=== PATIENT | female | born 1965 | race Caucasian/White ===

== ENCOUNTER 2017-12-29 08:39 | Day surgery (SDC) | payer OTHER ==
[2017-12-25 13:41] VITALS: BMI 27.3
[~2017-12-29 08:39] MED LIST: LACTATED RINGERS 1,000 ML IV SCH; LIDOCAINE 1% 20 ML VIAL (10MG/ML) FOR IV START INTRADERMA PRN
[2017-12-29 09:36] VITALS: RESP 16; TEMP 98.6
[2017-12-29] MEDS ORDERED: PROPOFOL 10 MG/ML 20 ML VIAL IV ONE (09:46)
--- NOTE | 2017-12-29 10:08 | P.PCN ---
Date of Procedure: 12/29/17 Procedure(s) Performed: Procedure: Total colonoscopy. Preoperative diagnosis: Screening for neoplasia. Postoperative diagnosis: Exam within normal limits. Preparation: HalfLytely prep. Sedation: Was provided by anesthesia. Brief clinical history: The patient is a 52-year-old female who is scheduled for this evaluation for screening for neoplasia age being her risk factor. There is no family history of colon cancer. Her father has Crohn's disease. She has no abdominal complaints, bleeding or anemia. This would be her first colonoscopy. Procedure: With the patient on her left lateral decubitus position and after informed consent and adequate sedation the perianal area was inspected and it did not show any fissures or fistulas. There were no masses felt on digital rectal examination. The Olympus CFQ 160L video colonoscope was then inserted in the rectum in the usual fashion and advanced to the cecum. The mucosa appeared healthy. No polyps or tumors were seen or any obvious diverticular disease or other pathology I retroflexed the endoscope in the rectum before the endoscope was withdrawn. The patient tolerated the procedure well. Plan: The patient was reassured. She will follow-up with you as planned and I recommended repeat exam in 10 years.
[2017-12-29 10:34] VITALS: BP 127/83; PULSE 73
== END 2017-12-29 10:52 | disposition home or self-care (01) ==
LOC: ORWHC2ENDO 08:39
DX: Z12.11 Encounter for screening for malignant neoplasm of colon (principal); E78.5 Hyperlipidemia, unspecified; Z87.891 Personal history of nicotine dependence; Z79.1 Long term (current) use of non-steroidal anti-inflammatories (NSAID); Z79.899 Other long term (current) drug therapy
CPT/HCPCS: J2704; G0121; 45378

== ENCOUNTER → 2018-01-05 | Outpatient (CLI) | payer OTHER ==
--- NOTE | 2018-01-05 11:44 | ECHOS ---
STRESS ECHOCARDIOGRAM DATE OF SERVICE: 01/05/2018 INDICATIONS: Chest pain. MEDICATIONS: BASELINE HEART RATE: 86 BASELINE BLOOD PRESSURE: 158/84 MAXIMUM HEART RATE: 156 MAXIMUM BLOOD PRESSURE: 206/78 85% MPHR: 144 100% MPHR: 169 METS: 8 MAXIMUM STAGE REACHED: III TOTAL EXERCISE TIME: 7 minutes CLINICAL INFORMATION: Baseline EKG shows sinus rhythm, normal axis, normal intervals. Patient exercised on Ruel protocol for a total of 7 minutes achieving 8 METs, 92% of predicted maximal heart rate without chest pain. At peak exercise, she had a [address]-segment depression in the inferolateral leads that persisted almost 5 to 6 minutes into recovery. Baseline echo shows normal left ventricular size, wall motion and systolic function. Postexercise, there is normal hyperdynamic response of all segments of myocardium noted. CONCLUSIONS: 1. Above-average exercise tolerance. 2. Abnormal stress test by EKG criteria. 3. Negative stress echo. OLEGL / IJN: [id number] /
== END | disposition home or self-care (01) ==
LOC: RADNMMAIN 09:58
PROVIDERS: ATTEND Family Medicine
DX: R94.39 Abnormal result of other cardiovascular function study (principal)
CPT/HCPCS: 93351

== ENCOUNTER → 2018-01-08 | Outpatient (CLI) | payer OTHER ==
--- NOTE | 2018-01-14 10:07 | MM ---
Reason for exam: screening (asymptomatic). Last mammogram was performed 2 years and 5 months ago. History: Patient is postmenopausal. Family history of breast cancer in paternal grandmother at age 30. Physical Findings: A clinical breast exam by your physician is recommended on an annual basis and results should be correlated with mammographic findings. MG 3D Screening Mammo W/Cad Bilateral CC and MLO view(s) were taken. Prior study comparison: August 21, 2015, bilateral MG 3d screening mammo w/cad. July 28, 2012, bilateral digital screening mammo w/CAD. The breast tissue is heterogeneously dense. This may lower the sensitivity of mammography. Finding: There is a typically benign equal density (isodense), circumscribed lobulated mass located 10 cm from the nipple in the upper outer quadrant, posterior position of the left breast consistent with lymph node. ASSESSMENT: Probably benign, BI-RAD 3 RECOMMENDATION: Follow-up diagnostic mammogram of the left breast in 6 months.
== END | disposition home or self-care (01) ==
LOC: RADMAMWWP 15:46
PROVIDERS: ATTEND Family Medicine
DX: Z12.31 Encounter for screening mammogram for malignant neoplasm of breast (principal)
CPT/HCPCS: 77063; 77067

== ENCOUNTER → 2018-01-08 | Outpatient (CLI) | payer OTHER ==
[2018-01-08 17:54] LABS: Anion Gap 12 mmol/L; Blood Urea Nitrogen 12 mg/dL (7-17); Carbon Dioxide 24 mmol/L (22-30); Chloride 106 mmol/L (98-107); Potassium 3.9 mmol/L (3.5-5.1); Sodium 142 mmol/L (137-145)
[2018-01-08 18:47] LABS: HCT 42.1 % (34.0-46.0); HGB 13.6 gm/dL (11.4-16.0); MCHC 32.4 g/dL (31.0-37.0); MCV 89.6 fL (80.0-100.0); Mean Platelet Volume 6.5; Platelet Count 395 k/uL (150-450); RDW 13.4 % (11.5-15.5); WBC 10.4 k/uL (3.8-10.6)
== END | disposition home or self-care (01) ==
LOC: LABPAT 16:27
PROVIDERS: ATTEND Internal Medicine Cardiovascular Disease
DX: Z01.812 Encounter for preprocedural laboratory examination (principal); R94.39 Abnormal result of other cardiovascular function study
CPT/HCPCS: 80051; 82565; 84520; 85027

== ENCOUNTER 2018-01-15 07:33 | Day surgery (SDC) | payer OTHER ==
[2018-01-12 12:18] VITALS: BMI 27.3
[~2018-01-15 07:33] MED LIST changes: +ALPRAZolam 0.25 MG TAB PO PRN; +ALPRAZolam 0.5 MG TAB PO PRN; +ASPIRIN 325 MG TAB PO STA; +ATORVASTATIN 80 MG TAB PO STA; -LACTATED RINGERS 1,000 ML IV SCH; -LIDOCAINE 1% 20 ML VIAL (10MG/ML) FOR IV START INTRADERMA PRN; +NITROGLYCERIN SL TABS 0.4 MG TAB SUBLINGUAL PRN; +SODIUM CHLORIDE 0.9% 1,000 ML in EMPTY BAG 1 BAG IV ONE
[2018-01-15] MEDS ORDERED: MIDAZOLAM 2 MG/2 ML VIAL ONE (08:02)
[2018-01-15] MEDS ORDERED: LIDOCAINE 1% INJ 10MG/ML (20 ML MDV) ONE (08:02)
[2018-01-15 08:07] VITALS: RESP 16; TEMP 98.4
[2018-01-15] MEDS ORDERED: MIDAZOLAM 2 MG/2 ML VIAL IVP ONE ×2 (08:39→08:43)
[2018-01-15] MEDS ORDERED: LIDOCAINE 1% INJ 10MG/ML (20 ML MDV) SQ ONE (08:41)
[2018-01-15] MEDS ORDERED: IOPAMIDOL-370 125ML BTL INJ ONE (08:58)
[2018-01-15] MEDS ORDERED: RX INFO: IV CONTRAST WAS GIVEN 1 EACH MISC MISCELLANE PRN (09:06)
[2018-01-15] MEDS ORDERED: fentaNYL (PF) 50 MCG/ML 2 ML AMP ONE (09:07)
[2018-01-15] MEDS ORDERED: fentaNYL (PF) 50 MCG/ML 2 ML AMP IVP ONE (09:10)
[2018-01-15] MEDS ORDERED: SODIUM CHLORIDE 0.9% 1,000 ML IV SCH (09:15)
--- NOTE | 2018-01-15 09:37 | CC ---
CARDIAC CATHETERIZATION REPORT INDICATION: Precordial chest pain with abnormal EKG part of the stress test in a patient with multiple coronary risk factors including smoking, dyslipidemia, and strong family history of premature coronary artery disease. The patient was explained of risks, benefits and alternatives for cardiac catheterization including the risk of stroke, vascular injury, infection, and rarely something more serious. She understood and accepted. PROCEDURE NOTE: After obtaining informed consent, left heart catheterization and coronary angiogram were performed via the right femoral artery using standard Yasemin catheters. The patient tolerated the procedure well without any obvious immediate complications. A femoral angiogram was performed and Angio-Seal was deployed for hemostasis. FINDINGS: HEMODYNAMICS: Left ventricular end-diastolic pressure is 8 to 12 mm. There is no significant gradient across aortic valve. LEFT VENTRICULOGRAM: Left ventriculogram is not performed. ANGIOGRAPHIC DATA: 1. Left main coronary artery: Left main coronary artery is a normal-sized vessel and is free of stenosis. Divides into left anterior descending coronary artery and circumflex coronary artery. 2. LAD and its branches, circumflex coronary artery and its branches are free of significant stenosis. 3. Right coronary artery: Right coronary artery is a large dominant vessel shows a mild atherosclerotic plaque in its midportion, but there are no focal hemodynamically significant lesions noted. 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 PLAN: I told the patient the patient's chest discomfort is probably noncardiac in origin and she could have underlying vasospasm. I advised her to quit smoking, take an aspirin, cholesterol-lowering medications and have optimal control of blood pressure. If necessary, I will start her on nitrates. The patient received moderate conscious sedation and total sedation time is 15 minutes. MMODL / IJN: [id number] /
[2018-01-15] MEDS ORDERED: ACETAMINOPHEN TAB 325 MG TAB ONE (10:38)
[2018-01-15 14:16] VITALS: BP 128/72; PULSE 64
== END 2018-01-15 14:16 | disposition home or self-care (01) ==
LOC: CATHCVL 07:33
PROVIDERS: ATTEND Internal Medicine Cardiovascular Disease
DX: I25.10 Atherosclerotic heart disease of native coronary artery without angina pectoris (principal); F17.200 Nicotine dependence, unspecified, uncomplicated; E78.2 Mixed hyperlipidemia; Z79.899 Other long term (current) drug therapy; Z82.49 Family history of ischemic heart disease and other diseases of the circulatory system
CPT/HCPCS: 93458; C1760; C1894; C1769; J2250; J2001; J3010; Q9967

== ENCOUNTER → 2018-02-05 | Outpatient (CLI) | payer OTHER ==
[2018-02-05 15:15] VITALS: BP 156/67; PULSE 79; RESP 14; TEMP 98.2; BMI 27.7
--- NOTE | 2018-02-05 15:19 | P.GSHP ---
History of Present Illness H&P Date: 02/05/18 The patient is a 52-year-old white female who on routine mammogram was noted to have a circumscribed lobulated mass located 10 cm from the nipple in the upper inner quadrant posterior portion of the left breast. This was felt to be consistent with a lymph node and probably benign BIRADS 3. Follow-up diagnostic mammogram of the left breast in 6 months time was recommended. The patient herself does not feel any masses in her breast she has no nipple discharge or skin changes. Patient with very little intake of caffiene, chocolate: every day, does not smoke, lives with a smoker. Family history: Maternal grandmother: Colon cancer 2. Paternal grandmother of breast cancer at 30 Hormonal history: Menstrual period began at 13 Pregnancies 5, 1 miscarriage 4 children first at 22 patient did not breast-feed control pills: 15 years Hormones: Negative Menopause: 49 Past surgical history: 1. appendix 2. heart cath 3. colonoscopy Past medical history: 1. HTN Social History: smoke: 1 PPD/stopped 6 years ago Alcohol: Negative Drugs: Negative - Constitutional Constitutional: Denies chills, Denies fever - EENT Eyes: denies blurred vision Ears: deny: decreased hearing, tinnitus Ears, nose, mouth and throat: Denies headache, Denies sore throat - Breasts Breasts: bilateral: as per HPI - Cardiovascular Cardiovascular: Reports high blood pressure - Respiratory Comment: former smoker Respiratory: Denies cough, Denies 7 - Gastrointestinal Gastrointestinal: Denies abdominal pain, Denies diarrhea, Denies nausea, Denies vomiting - Genitourinary (Female) Genitourinary: Denies dysuria, Denies hematuria - Menstruation Menstruation: Reports postmenopausal - Musculoskeletal Musculoskeletal: Denies myalgias - Integumentary Integumentary: Denies pruritus, Denies rash - Neurological Neurological: Denies numbness, Denies weakness - Psychiatric Psychiatric: Reports anxiety, Denies depression - Endocrine Endocrine: Denies fatigue, Denies weight change - Hematologic/Lymphatic Comment: baby aspirin - Allergic/Immunologic Comment: none Past Medical History Past Medical History: Hyperlipidemia, Hypertension Additional Past Medical History / Comment(s): States bp and glucose slightly elevated at last Drs. visit. Gets twitching/spasms in left calf. History of Any Multi-Drug Resistant Organisms: None Reported Past Surgical History: Appendectomy Past Anesthesia/Blood Transfusion Reactions: No Reported Reaction Past Psychological History: Anxiety Smoking Status: Former smoker Past Alcohol Use History: Rare Additional Past Alcohol Use History / Comment(s): QUIT SMOKING 5-6 YEARS AGO., SMOKED 1 PPD., SMOKED 15 YEARS Past Drug Use History: None Reported - Past Family History Father Additional Family Medical History / Comment(s): CROHNS Medications and Allergies Home Medications Medication Instructions Recorded Confirmed Type Acetaminophen Tab [Tylenol Tab] 650 mg PO Q6H PRN 12/25/17 01/15/18 History Atorvastatin [Lipitor] 1 tab PO HS 12/25/17 01/15/18 History Biotin 1 tab PO DAILY 12/25/17 01/12/18 History Cinnamon Bark [Cinnamon] 1 tab PO DAILY 12/25/17 01/12/18 History Ibuprofen [Motrin Ib] 400 mg PO HS PRN 12/25/17 01/12/18 History [place]ball-3 Fatty Acids/Fish Oil [Fish 1 each PO DAILY 12/25/17 01/15/18 History Oil 1,000 mg Softgel] PARoxetine HCL [Paxil] 30 mg PO DAILY 12/25/17 01/15/18 History Zolpidem [Ambien] 1 tab PO HS PRN 12/25/17 01/15/18 History Nitroglycerin Sl Tabs [Nitrostat] 0.4 mg SUBLINGUAL Q5M PRN 01/12/18 01/12/18 History Metoprolol Succinate (ER) [Toprol 25 mg PO DAILY 01/15/18 01/15/18 History Xl] Allergies Allergy/AdvReac Type Severity Reaction Status Date / Time No Known Allergies Allergy Verified 01/12/18 11:52 Surgical - Exam - General well developed, well nourished, no distress - Eyes normal ocular movement, no icteric - ENT no hearing loss, no congestion - Neck no masses, trachea midline - Respiratory normal respiratory effort, clear to auscultation - Cardiovascular Rhythm: regular Heart Sounds: normal: S1, S2 - Abdomen Abdomen: soft, non tender, no guarding, no rigid, no rebound - Neurologic no disoriented, no combative - Musculoskeletal normal gait, normal posture - Psychiatric oriented to time, oriented to person, oriented to place, speech is normal, memory intact Breast examination: Right breast: Multiple positional exam no dominant masses or nodules of concern Right axilla: No adenopathy of concern Left breast: Multiple positional exam or dominant masses or nodules of concern particularly attention was paid to the area 10 cm from the nipple in the upper outer quadrant and no specific lesion was identified Left axilla: No adenopathy of concern Results Mammogram results reviewed Assessment and Plan Assessment: Impression/plan: 1. Mammographic abnormality left breast 2. Fibrocystic breast changes 3. Hypertension Plan: 1. Repeat left breast mammogram in 6 months time 2. Medical management of medical problems We have had a discussion regarding fibrocystic changes and she understands that caffeinated beverages and/or chocolate may make further cystic changes worse. Cc: Dr. Cornel Witt
== END | disposition home or self-care (01) ==
LOC: WWCWWP 14:23
PROVIDERS: ATTEND Surgery
DX: Z53.9 Procedure and treatment not carried out, unspecified reason (principal)

== ENCOUNTER 2018-02-26 19:43 | Emergency (ER) | payer OTHER ==
[2018-02-26] MEDS ORDERED: SODIUM CHLORIDE 0.9% 1,000 ML IV STA (20:32)
[2018-02-26] MEDS ORDERED: FAMOTIDINE 20 MG/2 ML VIAL IV STA (20:33)
--- NOTE | 2018-02-26 20:39 | ED ---
Abdominal Pain HPI - General Chief Complaint: Abdominal Pain Stated Complaint: upper abdominal & back pain/vomiting Time Seen by Provider: 02/26/18 20:15 Source: patient, family Mode of arrival: ambulatory Limitations: no limitations - History of Present Illness Initial Comments: 52-year-old female patient presented to the emergency department today for evaluation of midepigastric discomfort and right upper quadrant discomfort. Patient is describing the pain as an "intense hunger pain that hurts". Patient states his been going on for the last couple of days but today after eating seemed to worsen. Patient states she has been nauseated but has not vomited. She denies any diarrhea but states she has been mildly constipated. She denies any fevers or chills with this. Patient has had an appendectomy before but no other abdominal surgeries. Patient has been told she has had a hernia in the past. Patient did have a clean heart cath 2 weeks ago. Patient denies any recent rash, shortness breath, chest pain, diarrhea, constipation, back pain, numbness, tingling, dizziness, weakness, hematuria, dysuria, urinary urgency, urinary frequency, headache, visual changes, or any other complaints. - Related Data Home Medications Medication Instructions Recorded Confirmed Atorvastatin [Lipitor] 40 mg PO HS 12/25/17 02/26/18 Ibuprofen [Motrin Ib] 400 mg PO HS PRN 12/25/17 02/26/18 Zolpidem [Ambien] 5 mg PO HS PRN 12/25/17 02/26/18 Nitroglycerin Sl Tabs [Nitrostat] 0.4 mg SUBLINGUAL Q5M PRN 01/12/18 02/26/18 Metoprolol Succinate (ER) [Toprol 25 mg PO DAILY 01/15/18 02/26/18 Xl] Hydrochlorothiazide 12.5 mg PO DAILY 02/05/18 02/26/18 PARoxetine [Paxil] 20 mg PO DAILY 02/26/18 02/26/18 Previous Rx's Medication Instructions Recorded Ranitidine HCl [Zantac] 150 mg PO HS #30 tab 02/26/18 Allergies Allergy/AdvReac Type Severity Reaction Status Date / Time No Known Allergies Allergy Verified 02/26/18 20:07 Review of Systems ROS Statement: Those systems with pertinent positive or pertinent negative responses have been documented in the HPI. ROS Other: All systems not noted in ROS Statement are negative. Past Medical History Past Medical History: Hyperlipidemia, Hypertension Additional Past Medical History / Comment(s): States bp and glucose slightly elevated at last Drs. visit. Gets twitching/spasms in left calf. History of Any Multi-Drug Resistant Organisms: None Reported Past Surgical History: Appendectomy Past Anesthesia/Blood Transfusion Reactions: No Reported Reaction Past Psychological History: Anxiety Smoking Status: Former smoker Past Alcohol Use History: Rare Past Drug Use History: None Reported - Past Family History Father Additional Family Medical History / Comment(s): CROHNS General Exam Limitations: no limitations General appearance: alert, in no apparent distress, other (This is a well- developed, well-nourished adult female patient in no acute distress. Vital signs upon presentation are temperature 98.6F, pulse 72, respirations 18, blood pressure 149/81, pulse ox 98% on room air.) Eye exam: Present: normal appearance, PERRL, EOMI. Absent: scleral icterus, conjunctival injection, periorbital swelling ENT exam: Present: normal exam, normal oropharynx, mucous membranes moist Respiratory exam: Present: normal lung sounds bilaterally. Absent: respiratory distress, wheezes, rales, rhonchi, stridor Cardiovascular Exam: Present: regular rate, normal rhythm, normal heart sounds. Absent: systolic murmur, diastolic murmur, rubs, gallop, clicks GI/Abdominal exam: Present: soft, tenderness (Midepigastric tenderness), normal bowel sounds. Absent: distended, guarding, rebound, rigid Neurological exam: Present: alert, oriented X3, CN II-XII intact Psychiatric exam: Present: normal affect, normal mood Skin exam: Present: warm, dry, intact, normal color. Absent: rash Course Vital Signs 02/26/18 02/26/18 19:48 22:20 Temperature 98.6 F 97.9 F Pulse Rate 72 60 Respiratory 18 16 Rate Blood Pressure 149/81 131/76 O2 Sat by Pulse 98 96 Oximetry Medical Decision Making - Medical Decision Making 52-year-old female patient presented to the emergency department today for evaluation of midepigastric abdominal discomfort. Physical examination did reveal some mild midepigastric tenderness. Labs reviewed and are unremarkable. Patient was given Pepcid IV here in the emergency department, this did not improve symptoms that she was then administered a GI cocktail. Did discuss findings and results with the patient. We did discuss possibility of gastritis versus peptic ulcer disease as a cause for her symptoms. She is instructed to follow-up with her primary care physician and discuss referral to GI specialist. She'll be given a prescription for Zantac. Return parameters were discussed in detail. She verbalizes understanding and agrees with this plan. - Lab Data Result diagrams: 02/26/18 20:50 02/26/18 20:50 Lab Results 02/26/18 02/26/18 02/26/18 Range/Units 20:50 20:50 20:50 WBC 10.1 (3.8-10.6) k/uL RBC 4.35 (3.80-5.40) m/uL Hgb 13.5 (11.4-16.0) gm/dL Hct 40.1 (34.0-46.0) % MCV 92.1 (80.0-100.0) fL MCH 31.0 (25.0-35.0) pg MCHC 33.6 (31.0-37.0) g/dL RDW 12.9 (11.5-15.5) % Plt Count 389 (150-450) k/uL Neutrophils % 58 % Lymphocytes % 33 % Monocytes % 5 % Eosinophils % 2 % Basophils % 1 % Neutrophils # 5.8 (1.3-7.7) k/uL Lymphocytes # 3.3 (1.0-4.8) k/uL Monocytes # 0.5 (0-1.0) k/uL Eosinophils # 0.2 (0-0.7) k/uL Basophils # 0.1 (0-0.2) k/uL Sodium 141 (137-145) mmol/L Potassium 4.1 (3.5-5.1) mmol/L Chloride 105 (98-107) mmol/L Carbon Dioxide 27 (22-30) mmol/L Anion Gap 9 mmol/L BUN 21 H (7-17) mg/dL Creatinine 0.75 (0.52-1.04) mg/dL Est GFR (CKD-EPI)AfAm >90 (>60 ml/min/1.73 sqM) Est GFR (CKD-EPI)NonAf >90 (>60 ml/min/1.73 sqM) Glucose 123 H (74-99) mg/dL Calcium 9.5 (8.4-10.2) mg/dL Total Bilirubin 0.5 (0.2-1.3) mg/dL AST 25 (14-36) U/L ALT 25 (9-52) U/L Alkaline Phosphatase 78 (38-126) U/L Total Creatine Kinase (30-135) U/L CK-MB (CK-2) (0.0-2.4) ng/mL CK-MB (CK-2) Rel Index Troponin I (0.000-0.034) ng/mL Total Protein 7.4 (6.3-8.2) g/dL Albumin 4.2 (3.5-5.0) g/dL Amylase 63 (30-110) U/L Lipase 211 (23-300) U/L Urine Color Colorless Urine Appearance Clear (Clear) Urine pH 7.0 (5.0-8.0) Ur Specific [place] 1.007 (1.001-1.035) Urine Protein Negative (Negative) Urine Glucose (UA) Negative (Negative) Urine Ketones Negative (Negative) Urine Blood Negative (Negative) Urine Nitrite Negative (Negative) Urine Bilirubin Negative (Negative) Urine Urobilinogen <2.0 (<2.0) mg/dL Ur Leukocyte Esterase Negative (Negative) 02/26/18 Range/Units 20:50 WBC (3.8-10.6) k/uL RBC (3.80-5.40) m/uL Hgb (11.4-16.0) gm/dL Hct (34.0-46.0) % MCV (80.0-100.0) fL MCH (25.0-35.0) pg MCHC (31.0-37.0) g/dL RDW (11.5-15.5) % Plt Count (150-450) k/uL Neutrophils % % Lymphocytes % % Monocytes % % Eosinophils % % Basophils % % Neutrophils # (1.3-7.7) k/uL Lymphocytes # (1.0-4.8) k/uL Monocytes # (0-1.0) k/uL Eosinophils # (0-0.7) k/uL Basophils # (0-0.2) k/uL Sodium (137-145) mmol/L Potassium (3.5-5.1) mmol/L Chloride (98-107) mmol/L Carbon Dioxide (22-30) mmol/L Anion Gap mmol/L BUN (7-17) mg/dL Creatinine (0.52-1.04) mg/dL Est GFR (CKD-EPI)AfAm (>60 ml/min/1.73 sqM) Est GFR (CKD-EPI)NonAf (>60 ml/min/1.73 sqM) Glucose (74-99) mg/dL Calcium (8.4-10.2) mg/dL Total Bilirubin (0.2-1.3) mg/dL AST (14-36) U/L ALT (9-52) U/L Alkaline Phosphatase (38-126) U/L Total Creatine Kinase 130 (30-135) U/L CK-MB (CK-2) 1.0 (0.0-2.4) ng/mL CK-MB (CK-2) Rel Index 0.8 Troponin I <0.012 (0.000-0.034) ng/mL Total Protein (6.3-8.2) g/dL Albumin (3.5-5.0) g/dL Amylase (30-110) U/L Lipase (23-300) U/L Urine Color Urine Appearance (Clear) Urine pH (5.0-8.0) Ur Specific [place] (1.001-1.035) Urine Protein (Negative) Urine Glucose (UA) (Negative) Urine Ketones (Negative) Urine Blood (Negative) Urine Nitrite (Negative) Urine Bilirubin (Negative) Urine Urobilinogen (<2.0) mg/dL Ur Leukocyte Esterase (Negative) - EKG Data -: EKG Interpreted by Md EKG Comments: EKG obtained at 2106 shows normal sinus rhythm with a ventricular rate of 68, KS interval 120, QRS duration 92, QT 410, QTC 435. No evidence of ST elevation or depression. - Radiology Data Radiology results: report reviewed, image reviewed Two-view x-ray of the abdomen is obtained. There is no sign of intestinal obstruction or pneumoperitoneum. Fecal pattern is normal. Lung bases are clear consolidation. There are no pathologic calcifications over the kidneys. Impression by Dr. Cardona shows nonacute abdomen. Disposition Clinical Impression: Epigastric pain Disposition: HOME SELF-CARE Condition: Good Instructions: Gastritis (ED), Diet for Stomach Ulcers and Gastritis (ED), Abdominal Pain (ED) Additional Instructions: Take medications as directed. Follow-up with your primary care physician for possible referral to GI specialist or surgeon. Return to the emergency department immediately for any new, worsening, or concerning symptoms. Prescriptions: Ranitidine HCl [Zantac] 150 mg PO HS #30 tab Is patient prescribed a controlled substance at d/c from ED?: No Referrals: Cornel Witt MD [Primary Care Provider] - 1-2 days Bo Malhotra MD [STAFF PHYSICIAN] - 1-2 days Jesse Brown MD [Medical Doctor] - 1-2 days Time of Disposition: 22:08
--- NOTE | 2018-02-26 21:02 | XR ---
EXAMINATION TYPE: XR KUB DATE OF EXAM: 02/26/2018 COMPARISON: NONE HISTORY: Abdominal pain TECHNIQUE: 2 views FINDINGS: There is no sign of intestinal obstruction or pneumoperitoneum. Fecal pattern is normal. Laxmi ng bases are clear of consolidation. There are no pathologic calcifications over the kidneys. IMPRESSION: Nonacute abdomen.
[2018-02-26 21:04] LABS: Appearance,Urine Clear (Clear); Bilirubin,Urine Negative (Negative); Blood,Urine Negative (Negative); Color,Urine Colorless; Glucose,Urine (UA) Negative (Negative); Ketones,Urine Negative (Negative); Leukocyte Esterase,Urine Negative (Negative); Nitrite,Urine Negative (Negative); Protein,Urine Negative (Negative); Specific Gravity,Urine 1.007 (1.001-1.035); Urobilinogen,Urine <2.0 mg/dL (<2.0)
[2018-02-26 21:16] LABS: ALT 25 U/L (9-52); AST 25 U/L (14-36); Albumin 4.2 g/dL (3.5-5.0); Alkaline Phosphatase 78 U/L (38-126); Amylase 63 U/L (30-110); Anion Gap 9 mmol/L; Blood Urea Nitrogen 21 mg/dL (7-17); Calcium 9.5 mg/dL (8.4-10.2); Carbon Dioxide 27 mmol/L (22-30); Chloride 105 mmol/L (98-107); Glucose 123 mg/dL (74-99); Lipase 211 U/L (23-300); Potassium 4.1 mmol/L (3.5-5.1); Sodium 141 mmol/L (137-145); Total Bilirubin 0.5 mg/dL (0.2-1.3); Total Protein 7.4 g/dL (6.3-8.2)
[2018-02-26 21:27] LABS: Creatine Kinase 130 U/L (30-135)
[2018-02-26 21:33] LABS: Basophils # (A) 0.1 k/uL (0-0.2); Basophils % (A) 1 %; Eosinophils # (A) 0.2 k/uL (0-0.7); Eosinophils % (A) 2 %; HCT 40.1 % (34.0-46.0); HGB 13.5 gm/dL (11.4-16.0); Lymphocytes # (A) 3.3 k/uL (1.0-4.8); Lymphocytes % (A) 33 %; MCHC 33.6 g/dL (31.0-37.0); MCV 92.1 fL (80.0-100.0); Mean Platelet Volume 6.5; Monocytes # (A) 0.5 k/uL (0-1.0); Monocytes % (A) 5 %; Neutrophils # (A) 5.8 k/uL (1.3-7.7); Neutrophils % (A) 58 %; Platelet Count 389 k/uL (150-450); RBC 4.35 m/uL (3.80-5.40); RDW 12.9 % (11.5-15.5); WBC 10.1 k/uL (3.8-10.6)
[2018-02-26 21:40] LABS: Troponin I <0.012 ng/mL (0.000-0.034)
[2018-02-26] MEDS ORDERED: MAG HYDROX/AL HYDROX/SIMETH 30 ML, HYOSCYAMINE ELIXIR 10 ML, CIMETIDINE HCL 300 MG, LID... PO STA ×4 (22:07)
[2018-02-26 22:21] VITALS: BP 131/76; PULSE 60; RESP 16; TEMP 97.9
== END 2018-02-26 22:24 | disposition home or self-care (01) ==
LOC: EC 19:43
DX: R10.13 Epigastric pain (principal); R10.11 Right upper quadrant pain; R11.0 Nausea; E78.5 Hyperlipidemia, unspecified; I10 Essential (primary) hypertension; F41.9 Anxiety disorder, unspecified; Z87.891 Personal history of nicotine dependence; Z79.899 Other long term (current) drug therapy; Z90.49 Acquired absence of other specified parts of digestive tract
CPT/HCPCS: 36415; 74018; 80053; 81003; 82150; 82550; 82553; 83690; 84484; 85025; 93005; 96361; 96374; 99284

== ENCOUNTER → 2018-04-08 | Outpatient (CLI) | payer OTHER ==
--- NOTE | 2018-04-08 14:06 | NM ---
EXAMINATION TYPE: NM hepatobiliary w CCK DATE OF EXAM: 04/08/2018 COMPARISON: CT 09/24/2012 HISTORY: Right upper quadrant pain TECHNIQUE: After the intravenous administration of 5.0 mCi Tc 99m Mebrofenin hepatobiliary scintigrap hy is performed. Immediate images post injection. FINDINGS: There is satisfactory initial accumulation of tracer by the liver. The gallbladder is visualized wit hin 24 minutes. The small bowel activity is noted within 12 minutes. At one hour CCK was administer ed, patient was injected with 1.3 mcg of Kinevac, and gallbladder ejection fraction is calculated at 91 %, in the possibly hyperdynamic range. Therefore there is no scintigraphic evidence of cystic or common bile duct obstruction to suggest acute cholecystitis or gallbladder dyskinesia. IMPRESSION: Gallbladder ejection fraction is above the upper limit of normal.
== END | disposition home or self-care (01) ==
LOC: RADNMMAIN 07:11
PROVIDERS: ATTEND Surgery
DX: R10.11 Right upper quadrant pain (principal)
CPT/HCPCS: 78227; A9537; J2805

== ENCOUNTER → 2018-04-10 | Outpatient (CLI) | payer OTHER ==
--- NOTE | 2018-04-13 10:07 | USB ---
Reason for exam: clinical finding. History: Patient is postmenopausal. Family history of breast cancer in paternal grandmother at age 30. Physical Findings: Nurse did not find any significant physical abnormalities on exam. US Breast LT Left complete breast ultrasound includes all four quadrants, the retroareolar region and axilla. Finding demonstrates a 0.8 x 0.3 x 0.6cm node at 3 o'clock. These results were verbally communicated with the patient and result sheet given to the patient on 04/10/18. ASSESSMENT: Benign, BI-RAD 2 RECOMMENDATION: Return to routine screening mammogram schedule for both breasts. Back on schedule.
== END | disposition home or self-care (01) ==
LOC: RADUSWWP 14:48
PROVIDERS: ATTEND Surgery
DX: R92.8 Other abnormal and inconclusive findings on diagnostic imaging of breast (principal)

== ENCOUNTER 2018-11-27 14:14 | Observation (INO) | payer OTHER ==
[2018-11-27] MEDS ORDERED: SODIUM CHLORIDE 0.9% 500 ML 500 ML IV STA (14:46)
[2018-11-27] MEDS ORDERED: ASPIRIN 81 MG PO STA (14:46)
[2018-11-27 14:56] LABS: Basophils # (A) 0.1 k/uL (0-0.2); Basophils % (A) 1 %; Eosinophils # (A) 0.2 k/uL (0-0.7); Eosinophils % (A) 2 %; HCT 42.3 % (34.0-46.0); HGB 14.1 gm/dL (11.4-16.0); Lymphocytes # (A) 3.2 k/uL (1.0-4.8); Lymphocytes % (A) 33 %; MCH 30.4 pg (25.0-35.0); MCHC 33.4 g/dL (31.0-37.0); MCV 91.1 fL (80.0-100.0); Mean Platelet Volume 6.3; Monocytes # (A) 0.5 k/uL (0-1.0); Monocytes % (A) 5 %; Neutrophils # (A) 5.6 k/uL (1.3-7.7); Neutrophils % (A) 57 %; Platelet Count 418 k/uL (150-450); RBC 4.65 m/uL (3.80-5.40); WBC 9.7 k/uL (3.8-10.6)
[2018-11-27 15:06] LABS: ALT 19 U/L (9-52); AST 25 U/L (14-36); African American GFR (CKD) >90 (>60 ml/min/1.73 sqM); Albumin 4.7 g/dL (3.5-5.0); Alkaline Phosphatase 89 U/L (38-126); Anion Gap 9 mmol/L; Blood Urea Nitrogen 13 mg/dL (7-17); Calcium 9.8 mg/dL (8.4-10.2); Carbon Dioxide 28 mmol/L (22-30); Chloride 105 mmol/L (98-107); Glucose 68 mg/dL (74-99); Magnesium 2.1 mg/dL (1.6-2.3); Potassium 4.1 mmol/L (3.5-5.1); Sodium 142 mmol/L (137-145); Total Bilirubin 0.5 mg/dL (0.2-1.3); Total Protein 7.8 g/dL (6.3-8.2)
[2018-11-27 15:11] LABS: INR 0.9 (<1.2); Partial Thromboplastin Time 24.1 sec (22.0-30.0); Prothrombin Time 9.4 sec (9.0-12.0)
--- NOTE | 2018-11-27 15:18 | ED ---
General Adult HPI - General Chief complaint: Chest Pain Stated complaint: Chestpain/high blood pressure Time Seen by Provider: 11/27/18 14:29 Source: patient, RN notes reviewed Mode of arrival: wheelchair Limitations: no limitations - History of Present Illness Initial comments: 53-year-old female with a past medical history of hyperlipidemia, hypertension presents to the emergency department for a chief complaint of chest pressure 1 week. Patient states it has been intermittent over the past week. States it feels like a squeezing pressure in her chest that comes and goes. States when this happened she feels short of breath as well and feels like she needs to take deeper breaths. States that she becomes "clammy" when these episodes occur. Denies any alleviating or aggravating factors. States she does not notice this worsening and exertional activity. States she also feels her heart is "jumping" at times. Patient states that she did have a negative heart cath in late 2018. States that she saw her primary care provider today who sent her into the emergency department. Patient does have a family history of [place] in her father prior to 50 years old. Patient has a history of high cholesterol, does not take her medication much. Patient does have a [id number] smoking history but quit 5 years ago.Patient has no other complaints at this time including shortness of breath, abdominal pain, nausea or vomiting, headache, or visual changes. - Related Data Home Medications Medication Instructions Recorded Confirmed Atorvastatin [Lipitor] 40 mg PO HS 12/25/17 02/26/18 Nitroglycerin Sl Tabs [Nitrostat] 0.4 mg SUBLINGUAL Q5M PRN 01/12/18 02/26/18 Metoprolol Succinate (ER) [Toprol 25 mg PO DAILY 01/15/18 02/26/18 Xl] Hydrochlorothiazide 12.5 mg PO DAILY 02/05/18 02/26/18 PARoxetine [Paxil] 20 mg PO DAILY 02/26/18 02/26/18 traZODone HCL 25 mg PO HS 11/27/18 11/27/18 Allergies Allergy/AdvReac Type Severity Reaction Status Date / Time No Known Allergies Allergy Verified 11/27/18 16:50 Review of Systems ROS Statement: Those systems with pertinent positive or pertinent negative responses have been documented in the HPI. ROS Other: All systems not noted in ROS Statement are negative. Past Medical History Past Medical History: Hyperlipidemia, Hypertension Additional Past Medical History / Comment(s): States bp and glucose slightly elevated at last Drs. visit. Gets twitching/spasms in left calf. History of Any Multi-Drug Resistant Organisms: None Reported Past Surgical History: Appendectomy Past Anesthesia/Blood Transfusion Reactions: No Reported Reaction Past Psychological History: Anxiety Smoking Status: Former smoker Past Alcohol Use History: Rare Past Drug Use History: None Reported - Past Family History Father Additional Family Medical History / Comment(s): CROHNS General Exam Limitations: no limitations General appearance: alert, in no apparent distress Head exam: Present: atraumatic, normocephalic, normal inspection Eye exam: Present: normal appearance, PERRL, EOMI. Absent: scleral icterus, conjunctival injection, periorbital swelling ENT exam: Present: normal exam, mucous membranes moist Neck exam: Present: normal inspection, full ROM. Absent: tenderness, meningismus, lymphadenopathy Respiratory exam: Present: normal lung sounds bilaterally. Absent: respiratory distress, wheezes, rales, rhonchi, stridor Cardiovascular Exam: Present: regular rate, normal rhythm, normal heart sounds. Absent: systolic murmur, diastolic murmur, rubs, gallop, clicks GI/Abdominal exam: Present: soft, normal bowel sounds. Absent: distended, tenderness, guarding, rebound, rigid Neurological exam: Present: alert, oriented X3, CN II-XII intact Psychiatric exam: Present: normal affect, normal mood Course Vital Signs 11/27/18 11/27/18 14:23 16:47 Temperature 98.7 F Pulse Rate 58 L 61 Respiratory 18 20 Rate Blood Pressure 131/76 133/74 O2 Sat by Pulse 100 98 Oximetry - Reevaluation(s) Reevaluation #1: 11/27/18 16:42 Patient had a cardiac catheterization performed 10 months ago where patient was found to have mild nonobstructive disease involving the right coronary artery. EKG Findings - EKG Comments: EKG Findings:: Sinus rhythm with occasional PVC, ventricular rate 60, FL interval 116, QTc 442 Medical Decision Making - Medical Decision Making 53-year-old female presents to the emergency department for a chief complaint of chest pressure and squeezing chest pain intermittent times one week. Patient does have a history of high cholesterol with a [id number] smoking history although quit 5 years ago. Patient also has a positive family history of father with [place] and quadruple bypass before the age of 50. Vitals are stable on pre sentation to the emergency department. Patient denying any pain at this time. CBC and CMP are unremarkable. Troponin is negative. D-dimer is 0.65. Chest CT was ordered which showed no evidence for pulmonary embolism. Mild strandy scarring or atelectasis noted. EKG does show some occasional PVCs which are symptomatic inpatient causing a fluttering feeling. Patient did have a cardiac catheterization performed in 2018 which showed mild right coronary artery disease. Patient does have a heart score of 4 given risk factors. At this time patient will be admitted for trending troponin and cardiology consult. - Lab Data Result diagrams: 11/27/18 14:35 11/27/18 14:35 Lab Results 11/27/18 11/27/18 11/27/18 Range/Units 14:35 14:35 14:35 WBC 9.7 (3.8-10.6) k/uL RBC 4.65 (3.80-5.40) m/uL Hgb 14.1 (11.4-16.0) gm/dL Hct 42.3 (34.0-46.0) % MCV 91.1 (80.0-100.0) fL MCH 30.4 (25.0-35.0) pg MCHC 33.4 (31.0-37.0) g/dL RDW 13.0 (11.5-15.5) % Plt Count 418 (150-450) k/uL Neutrophils % 57 % Lymphocytes % 33 % Monocytes % 5 % Eosinophils % 2 % Basophils % 1 % Neutrophils # 5.6 (1.3-7.7) k/uL Lymphocytes # 3.2 (1.0-4.8) k/uL Monocytes # 0.5 (0-1.0) k/uL Eosinophils # 0.2 (0-0.7) k/uL Basophils # 0.1 (0-0.2) k/uL PT 9.4 (9.0-12.0) sec INR 0.9 (<1.2) APTT 24.1 (22.0-30.0) sec D-Dimer 0.65 H (<0.60) mg/L FEU Sodium 142 (137-145) mmol/L Potassium 4.1 (3.5-5.1) mmol/L Chloride 105 (98-107) mmol/L Carbon Dioxide 28 (22-30) mmol/L Anion Gap 9 mmol/L BUN 13 (7-17) mg/dL Creatinine 0.70 (0.52-1.04) mg/dL Est GFR (CKD-EPI)AfAm >90 (>60 ml/min/1.73 sqM) Est GFR (CKD-EPI)NonAf >90 (>60 ml/min/1.73 sqM) Glucose 68 L (74-99) mg/dL Calcium 9.8 (8.4-10.2) mg/dL Magnesium 2.1 (1.6-2.3) mg/dL Total Bilirubin 0.5 (0.2-1.3) mg/dL AST 25 (14-36) U/L ALT 19 (9-52) U/L Alkaline Phosphatase 89 (38-126) U/L Troponin I (0.000-0.034) ng/mL Total Protein 7.8 (6.3-8.2) g/dL Albumin 4.7 (3.5-5.0) g/dL 11/27/18 Range/Units 14:35 WBC (3.8-10.6) k/uL RBC (3.80-5.40) m/uL Hgb (11.4-16.0) gm/dL Hct (34.0-46.0) % MCV (80.0-100.0) fL MCH (25.0-35.0) pg MCHC (31.0-37.0) g/dL RDW (11.5-15.5) % Plt Count (150-450) k/uL Neutrophils % % Lymphocytes % % Monocytes % % Eosinophils % % Basophils % % Neutrophils # (1.3-7.7) k/uL Lymphocytes # (1.0-4.8) k/uL Monocytes # (0-1.0) k/uL Eosinophils # (0-0.7) k/uL Basophils # (0-0.2) k/uL PT (9.0-12.0) sec INR (<1.2) APTT (22.0-30.0) sec D-Dimer (<0.60) mg/L FEU Sodium (137-145) mmol/L Potassium (3.5-5.1) mmol/L Chloride (98-107) mmol/L Carbon Dioxide (22-30) mmol/L Anion Gap mmol/L BUN (7-17) mg/dL Creatinine (0.52-1.04) mg/dL Est GFR (CKD-EPI)AfAm (>60 ml/min/1.73 sqM) Est GFR (CKD-EPI)NonAf (>60 ml/min/1.73 sqM) Glucose (74-99) mg/dL Calcium (8.4-10.2) mg/dL Magnesium (1.6-2.3) mg/dL Total Bilirubin (0.2-1.3) mg/dL AST (14-36) U/L ALT (9-52) U/L Alkaline Phosphatase (38-126) U/L Troponin I <0.012 (0.000-0.034) ng/mL Total Protein (6.3-8.2) g/dL Albumin (3.5-5.0) g/dL Disposition Clinical Impression: Chest pressure Disposition: ADMITTED IP TO THIS HOSP Condition: Fair Is patient prescribed a controlled substance at d/c from ED?: No Referrals: Cornel Witt MD [Primary Care Provider] - 1-2 days Time of Disposition: 17:08
[2018-11-27 15:21] LABS: D-Dimer 0.65 mg/L FEU (<0.60)
--- NOTE | 2018-11-27 16:21 | CT ---
EXAMINATION TYPE: CT chest angio for PE DATE OF EXAM: 11/27/2018 COMPARISON: None HISTORY: 53-year-old female Chest pain. TECHNIQUE: Contiguous axial scanning of the chest performed with IV Contrast, patient injected with 6 1 mL of Isovue 370. Coronal/sagittal MIP reconstructions performed. CT DLP: 238.3 mGycm Automated exposure control for dose reduction was used. FINDINGS: Heart normal size without pericardial effusion. No flattening of the interventricular septum or reflu x of contrast into the hepatic veins. Aorta normal caliber with conventional branching anatomy. Satisfactory opacification of the pulmonary arterial system without evidence for pulmonary embolus. Mild thymic tissue is present in the anterior mediastinum. No thoracic lymphadenopathy by CT size cri teria. Trace biapical pleural-parenchymal scarring. No consolidation or pleural effusion. Strandy atelectasi s left greater than right lung bases. Visualized upper abdomen shows a tiny hiatal hernia. Bones: No osseous destructive process. IMPRESSION: 1. NO EVIDENCE FOR PULMONARY EMBOLUS. 2. STRANDY SCARRING OR ATELECTASIS AT THE LEFT GREATER THAN RIGHT LUNG BASES. NO ACUTE PULMONARY PROC ESS SEEN.
[2018-11-27] MEDS ORDERED: NITROGLYCERIN SL TABS 0.4 MG TAB SUBLINGUAL PRN (17:01)
[2018-11-27 18:14] VITALS: BMI 29.2
[2018-11-27] MEDS ORDERED: traZODone HCL 50 MG TAB PO SCH (21:00)
[2018-11-27] MEDS ORDERED: ATORVASTATIN 40 MG TAB PO SCH (21:00)
[2018-11-28 03:22] LABS: Cholesterol 189 mg/dL (<200); HDL Cholesterol 37 mg/dL (40-60); LDL Cholesterol,Calculated 84 mg/dL (0-99); Triglycerides 339 mg/dL (<150)
[2018-11-28 08:31] VITALS: RESP 16; TEMP 97.9
[2018-11-28] MEDS ORDERED: ASPIRIN 325 MG TAB PO SCH (09:00)
[2018-11-28] MEDS ORDERED: HYDROCHLOROTHIAZIDE 12.5 MG CAP PO SCH (09:00)
[2018-11-28] MEDS ORDERED: PARoxetine 20 MG TAB PO SCH (09:00)
[2018-11-28] MEDS ORDERED: METOPROLOL SUCCINATE (ER) 25 MG TAB.ER.24H PO SCH (09:00)
--- NOTE | 2018-11-28 09:06 | P.CRDCN ---
History of Present Illness Consult date: 11/28/18 History of present illness: This is a 53-year-old female with history of dyslipidemia, smoking and also family history of ischemic heart disease who underwent a stress echocardiogram in January 2018 for evaluation of chest pains. Apparently patient developed EKG changes but stress echo was negative. She was evaluated by cardiac catheterization and was found to have mild disease in the right coronary artery. Patient is advised that maximum medical therapy. Patient comes back now with complaints of similar symptoms off of chest discomfort and some palpitations. H er EKG showed sinus rhythm with occasional PVCs. The symptoms lasted from 10 in the morning until 10 last night. This morning she is feeling better. Her EKGs did not reveal any acute changes. Cardiac enzymes are negative. Given the history given above, I do not feel that we are dealing with acute coronary syndrome. I will increase her activity and if patient is stable she could be discharged home. Further evaluation could be performed as an outpatient by Dr. Holman. Review of Systems As per the chart Past Medical History Past Medical History: Hyperlipidemia, Hypertension Additional Past Medical History / Comment(s): States bp and glucose slightly elevated at last Drs. visit. Gets twitching/spasms in left calf. per pt "overactive gallbladder" History of Any Multi-Drug Resistant Organisms: None Reported Past Surgical History: Appendectomy, Heart Catheterization Past Anesthesia/Blood Transfusion Reactions: No Reported Reaction Past Psychological History: Anxiety Smoking Status: Former smoker Past Alcohol Use History: Rare Additional Past Alcohol Use History / Comment(s): QUIT SMOKING 5-6 YEARS AGO., SMOKED 1 PPD., SMOKED 15 YEARS Past Drug Use History: None Reported - Past Family History Father Additional Family Medical History / Comment(s): CROHNS Medications and Allergies Home Medications Medication Instructions Recorded Confirmed Type Atorvastatin [Lipitor] 40 mg PO HS 12/25/17 11/27/18 History Nitroglycerin Sl Tabs [Nitrostat] 0.4 mg SUBLINGUAL Q5M PRN 01/12/18 11/27/18 History Metoprolol Succinate (ER) [Toprol 25 mg PO DAILY 01/15/18 11/27/18 History Xl] Hydrochlorothiazide 12.5 mg PO DAILY 02/05/18 11/27/18 History PARoxetine [Paxil] 20 mg PO DAILY 02/26/18 11/27/18 History traZODone HCL 25 mg PO HS 11/27/18 11/27/18 History Allergies Allergy/AdvReac Type Severity Reaction Status Date / Time No Known Allergies Allergy Verified 11/27/18 16:50 Physical Exam Vitals: Vital Signs Temp Pulse Pulse Pulse Resp BP BP 11/28/18 08:00 97.9 F 52 L 16 98/59 11/28/18 04:00 98.2 F 54 L 15 108/65 11/28/18 00:00 97.9 F 64 15 97/52 11/27/18 19:50 15 11/27/18 19:42 97.9 F 67 15 128/73 11/27/18 18:22 59 L 16 11/27/18 17:51 97.9 F 59 L 16 133/62 11/27/18 17:37 97.8 F 62 20 119/74 11/27/18 16:47 61 20 133/74 11/27/18 14:23 98.7 F 58 L 18 131/76 Pulse Ox 11/28/18 08:00 97 11/28/18 04:00 97 11/28/18 00:00 98 11/27/18 19:50 11/27/18 19:42 97 11/27/18 18:22 11/27/18 17:51 96 11/27/18 17:37 97 11/27/18 16:47 98 11/27/18 14:23 100 Intake and Output 11/27/18 11/28/18 11/28/18 22:59 06:59 14:59 Other: Voiding Method Toilet Toilet # Voids 1 GENERAL EXAM: Patient is alert and oriented and doesn't appear to be in any acute distress HEENT: Normocephalic. Normal reaction of pupils, equal size, normal range of extraocular motion. No erythema or exudates in the throat. NECK: No masses, no nuchal rigidity. CHEST: No chest wall deformity. LUNGS: Equal air entry with no crackles or wheeze. HEART: S1 and S2 normal with no audible mumurs or gallops. Regular rhythm, femorals equal on both sides.. ABDOMEN: No hepatosplenomegaly, normal bowel sounds, no guarding or rigidity. SKIN: No rashes CENTRAL NERVOUS SYSTEM: No focal deficits. EXTREMITIES: No cyanosis, clubbing or edema. Results 11/27/18 14:35 11/27/18 14:35 Cardiac Enzymes 11/27/18 11/27/18 11/27/18 Range/Units 14:35 14:35 20:08 AST 25 (14-36) U/L Troponin I <0.012 <0.012 (0.000-0.034) ng/mL 11/28/18 Range/Units 02:32 AST (14-36) U/L Troponin I <0.012 (0.000-0.034) ng/mL Coagulation 11/27/18 Range/Units 14:35 PT 9.4 (9.0-12.0) sec APTT 24.1 (22.0-30.0) sec Lipids 11/28/18 Range/Units 02:32 Triglycerides 339 H (<150) mg/dL Cholesterol 189 (<200) mg/dL HDL Cholesterol 37 L (40-60) mg/dL CBC 11/27/18 Range/Units 14:35 WBC 9.7 (3.8-10.6) k/uL RBC 4.65 (3.80-5.40) m/uL Hgb 14.1 (11.4-16.0) gm/dL Hct 42.3 (34.0-46.0) % Plt Count 418 (150-450) k/uL Comprehensive Metabolic Panel 11/27/18 Range/Units 14:35 Sodium 142 (137-145) mmol/L Potassium 4.1 (3.5-5.1) mmol/L Chloride 105 (98-107) mmol/L Carbon Dioxide 28 (22-30) mmol/L BUN 13 (7-17) mg/dL Creatinine 0.70 (0.52-1.04) mg/dL Glucose 68 L (74-99) mg/dL Calcium 9.8 (8.4-10.2) mg/dL AST 25 (14-36) U/L ALT 19 (9-52) U/L Alkaline Phosphatase 89 (38-126) U/L Total Protein 7.8 (6.3-8.2) g/dL Albumin 4.7 (3.5-5.0) g/dL Current Medications Generic Name Dose Route Start Last Admin Trade Name Freq PRN Reason Stop Dose Admin Aspirin 325 mg 11/28/18 09:00 Aspirin PO DAILY ISMAEL Atorvastatin Calcium 40 mg 11/27/18 21:00 11/27/18 20:12 Lipitor PO 40 mg HS ISMAEL Administration Hydrochlorothiazide 12.5 mg 11/28/18 09:00 Hydrodiuril PO DAILY ISMAEL Metoprolol Succinate 25 mg 11/28/18 09:00 Toprol Xl PO DAILY ISMAEL Nitroglycerin 0.4 mg 11/27/18 17:01 Nitrostat SUBLINGUAL Q5M PRN Chest Pain Paroxetine HCl 20 mg 11/28/18 09:00 Paxil PO DAILY ISMAEL Trazodone HCl 25 mg 11/27/18 21:00 11/27/18 20:12 Desyrel PO 25 mg HS ISMAEL Administration Intake and Output 11/27/18 11/28/18 11/28/18 22:59 06:59 14:59 Other: Voiding Method Toilet Toilet # Voids 1 11/27/18 14:35 11/27/18 14:35 EKG Interpretations (text) Sinus rhythm with occasional PVCs Assessment and Plan (1) PVCs (premature ventricular contractions) Current Visit: Yes Status: Acute Code(s): I49.3 - VENTRICULAR PREMATURE DEPOLARIZATION SNOMED Code(s): 77374721 (2) Chest pressure Current Visit: Yes Status: Acute Code(s): R07.89 - OTHER CHEST PAIN SNOMED Code(s): 464799698 (3) Dyslipidemia Current Visit: Yes Status: Acute Code(s): E78.5 - HYPERLIPIDEMIA, UNSPECIFIED SNOMED Code(s): 924801302 Plan: Patient is comfortable at this time. So far enzymes and EKGs are normal. She had negative stress echocardiogram and also near-normal catheterization last year. Patient activity. Increased and if she stable she could be discharged home. Follow-up evaluation with Dr. Holman as an outpatient.
[2018-11-28 12:20] VITALS: BP 118/62; PULSE 64
--- NOTE | 2018-11-28 13:49 | P.HPIM ---
History of Present Illness This is a pleasant 53-year-old female came in with compensative from chest pressure which started yesterday nonexertional not associated with food not associated deep breathing radiating to the left arm. No associated diaphoresis or shortness of breath. Patient had a recent cardiac catheterization which did not show any significant in-stent table atherosclerotic vascular disease but did have mild disease in right coronary artery. 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 Patient is clinically doing well and no chest pain at this time patient will be discharged today Review of Systems REVIEW OF SYSTEMS: CONSTITUTIONAL: No fever, no malaise, no fatigue. HEENT: No recent visual problems or hearing problems. Denied any sore throat. CARDIOVASCULAR: No orthopnea, PND, no palpitations, no syncope. PULMONARY: No shortness of breath, no cough, no hemoptysis. GASTROINTESTINAL: No diarrhea, no nausea, no vomiting, no abdominal pain. NEUROLOGICAL: No headaches, no weakness, no numbness. HEMATOLOGICAL: Denies any bleeding or petechiae. GENITOURINARY: Denies any burning micturition, frequency, or urgency. MUSCULOSKELETAL/RHEUMATOLOGICAL: Denies any joint pain, swelling, or any muscle pain. ENDOCRINE: Denies any polyuria or polydipsia. The rest of the 14-point review of systems is negative. Past Medical History Past Medical History: Hyperlipidemia, Hypertension Additional Past Medical History / Comment(s): States bp and glucose slightly elevated at last Drs. visit. Gets twitching/spasms in left calf. per pt "ov eractive gallbladder" History of Any Multi-Drug Resistant Organisms: None Reported Past Surgical History: Appendectomy, Heart Catheterization Past Anesthesia/Blood Transfusion Reactions: No Reported Reaction Past Psychological History: Anxiety Smoking Status: Former smoker Past Alcohol Use History: Rare Additional Past Alcohol Use History / Comment(s): QUIT SMOKING 5-6 YEARS AGO., SMOKED 1 PPD., SMOKED 15 YEARS Past Drug Use History: None Reported - Past Family History Father Additional Family Medical History / Comment(s): CROHNS Medications and Allergies Home Medications Medication Instructions Recorded Confirmed Type Atorvastatin [Lipitor] 40 mg PO HS 12/25/17 11/27/18 History Nitroglycerin Sl Tabs [Nitrostat] 0.4 mg SUBLINGUAL Q5M PRN 01/12/18 11/27/18 History Metoprolol Succinate (ER) [Toprol 25 mg PO DAILY 01/15/18 11/27/18 History Xl] Hydrochlorothiazide 12.5 mg PO DAILY 02/05/18 11/27/18 History PARoxetine [Paxil] 20 mg PO DAILY 02/26/18 11/27/18 History traZODone HCL 25 mg PO HS 11/27/18 11/27/18 History Allergies Allergy/AdvReac Type Severity Reaction Status Date / Time No Known Allergies Allergy Verified 11/27/18 16:50 Physical Exam Vitals: Vital Signs Temp Pulse Pulse Pulse Resp BP BP 11/28/18 12:00 97.9 F 64 16 118/62 11/28/18 08:00 97.9 F 52 L 16 98/59 11/28/18 04:00 98.2 F 54 L 15 108/65 11/28/18 00:00 97.9 F 64 15 97/52 11/27/18 19:50 15 11/27/18 19:42 97.9 F 67 15 128/73 11/27/18 18:22 59 L 16 11/27/18 17:51 97.9 F 59 L 16 133/62 11/27/18 17:37 97.8 F 62 20 119/74 11/27/18 16:47 61 20 133/74 11/27/18 14:23 98.7 F 58 L 18 131/76 Pulse Ox 11/28/18 12:00 95 11/28/18 08:00 97 11/28/18 04:00 97 11/28/18 00:00 98 11/27/18 19:50 11/27/18 19:42 97 11/27/18 18:22 11/27/18 17:51 96 11/27/18 17:37 97 11/27/18 16:47 98 11/27/18 14:23 100 Intake and Output 11/27/18 11/28/18 11/28/18 22:59 06:59 14:59 Other: Voiding Method Toilet Toilet Toilet # Voids 1 PHYSICAL EXAMINATION: GENERAL: The patient is alert and oriented x3, not in any acute distress. Well developed, well nourished. HEENT: Pupils are round and equally reacting to light. EOMI. No scleral icterus. No conjunctival pallor. Normocephalic, atraumatic. No pharyngeal erythema. No t hyromegaly. CARDIOVASCULAR: S1 and S2 present. No murmurs, rubs, or gallops. PULMONARY: Chest is clear to auscultation, no wheezing or crackles. ABDOMEN: Soft, nontender, nondistended, normoactive bowel sounds. No palpable organomegaly. MUSCULOSKELETAL: No joint swelling or deformity. EXTREMITIES: No cyanosis, clubbing, or pedal edema. NEUROLOGICAL: Gross neurological examination did not reveal any focal deficits. SKIN: No rashes. Results CBC & Chem 7: 11/27/18 14:35 11/27/18 14:35 Labs: Abnormal Lab Results - Last 24 Hours (Table) 11/27/18 11/27/18 11/28/18 Range/Units 14:35 14:35 02:32 D-Dimer 0.65 H (<0.60) mg/L FEU Glucose 68 L (74-99) mg/dL Triglycerides 339 H (<150) mg/dL HDL Cholesterol 37 L (40-60) mg/dL Thrombosis Risk Factor Assmnt - Choose All That Apply Any of the Below Risk Factors Present?: Yes Each Factor Represents 1 point: Age 41-60 years, Obesity (BMI >25) Other Risk Factors: No Thrombosis Risk Factor Assessment Total Risk Factor Score: 2 Thrombosis Risk Factor Assessment Level: Low Risk Assessment and Plan Plan: Chest pain: Rule out acute coronary syndromes, unstable angina patient was ordered by cardiology patient will be discharged to follow up with cardiology as an outpatient, etiology of chest pain is not clear May be musculoskeletal. -Hypertension -Hyperlipidemia -Anxiety disorder For above-mentioned chronic medical problems patient will resume her medications
--- NOTE | 2018-11-28 13:56 | P.DS ---
Providers Date of admission: 11/27/18 17:07 Attending physician: Floresita Herrera Consults: 11/27/18 17:01 Consult Physician Routine Consulting Provider: [facility] Consult Reason/Comments: chest pressure, PVCs, mild RCA dz on cath 2018, Do you want consulting provider notified?: Yes Primary care physician: Cornel Witt [facility] Course: As mentioned in HPI Patient Condition at Discharge: Fair Plan - Discharge Summary Discharge Rx Participant: No New Discharge Prescriptions: No Action Atorvastatin [Lipitor] 40 mg PO HS Nitroglycerin Sl Tabs [Nitrostat] 0.4 mg SUBLINGUAL Q5M PRN PRN Reason: Chest Pain Metoprolol Succinate (ER) [Toprol Xl] 25 mg PO DAILY Hydrochlorothiazide 12.5 mg PO DAILY PARoxetine [Paxil] 20 mg PO DAILY traZODone HCL 25 mg PO HS Discharge Medication List Atorvastatin [Lipitor] 40 mg PO HS 12/25/17 [History] Nitroglycerin Sl Tabs [Nitrostat] 0.4 mg SUBLINGUAL Q5M PRN 01/12/18 [History] Metoprolol Succinate (ER) [Toprol Xl] 25 mg PO DAILY 01/15/18 [History] Hydrochlorothiazide 12.5 mg PO DAILY 02/05/18 [History] PARoxetine [Paxil] 20 mg PO DAILY 02/26/18 [History] traZODone HCL 25 mg PO HS 11/27/18 [History] Follow up Appointment(s)/Referral(s): Cornel Witt MD [Primary Care Provider] - 3 Days Discharge Disposition: HOME SELF-CARE
== END 2018-11-28 14:27 | disposition home or self-care (01) ==
LOC: EC 14:14 → 1SOBS 17:07
PROVIDERS: ADMIT Internal Medicine; ATTEND Internal Medicine
DX: R07.89 Other chest pain (principal); I49.3 Ventricular premature depolarization; I10 Essential (primary) hypertension; E78.5 Hyperlipidemia, unspecified; I25.10 Atherosclerotic heart disease of native coronary artery without angina pectoris; E78.00 Pure hypercholesterolemia, unspecified; F41.9 Anxiety disorder, unspecified; M62.831 Muscle spasm of calf; E66.9 Obesity, unspecified; Z68.29 Body mass index [BMI] 29.0-29.9, adult; Z79.899 Other long term (current) drug therapy; Z90.49 Acquired absence of other specified parts of digestive tract; Z87.891 Personal history of nicotine dependence; Z82.49 Family history of ischemic heart disease and other diseases of the circulatory system; Z83.79 Family history of other diseases of the digestive system
CPT/HCPCS: 96360; 99285; 36415; 85379; 80061; 80053; 83735; 84484 ×2; 85025; 85610; 85730; 71275; G0378 ×2; Q9967

== ENCOUNTER → 2019-06-21 | Outpatient (CLI) | payer OTHER ==
--- NOTE | 2019-06-21 11:54 | MM ---
Reason for exam: additional evaluation requested from abnormal screening. Last mammogram was performed 1 year and 5 months ago. History: Patient is postmenopausal. Family history of breast cancer in paternal grandmother at age 30. Physical Findings: Nurse did not find any significant physical abnormalities on exam. MG 3D Diag Mammo W/Cad HUGO Bilateral CC and MLO view(s) were taken. Prior study comparison: January 08, 2018, bilateral MG 3d screening mammo w/cad. August 21, 2015, bilateral MG 3d screening mammo w/cad. The breast tissue is heterogeneously dense. This may lower the sensitivity of mammography. No suspicious abnormality. No significant new findings when compared with previous films. These results were verbally communicated with the patient and result sheet given to the patient on 06/21/19. ASSESSMENT: Negative, BI-RAD 1 RECOMMENDATION: Routine screening mammogram of both breasts in 1 year.
== END | disposition home or self-care (01) ==
LOC: RADMAMWWP 10:57
PROVIDERS: ATTEND Family Medicine
DX: N64.4 Mastodynia (principal)
CPT/HCPCS: 77062; 77066

== ENCOUNTER → 2020-11-21 | Outpatient (CLI) | payer OTHER ==
--- NOTE | 2020-11-21 11:55 | BD ---
EXAMINATION TYPE: Axial Bone Density DATE OF EXAM: 11/21/2020 COMPARISON: NONE CLINICAL HISTORY: Height: 4 FT 11 1/2IN Weight: 134 FRAX RISK QUESTIONS: Alcohol (3 or more units per day): NO Family History (Parent hip fracture): NO Glucocorticoids (More than 3mos): NO (Ex: prednisone, prednisolone, methylprednisolone, dexamethasone, and hydrocortisone). History of Fracture in Adulthood: NO Secondary Osteoporosis: 1. Type 1 Diabetes: NO 2. Hyperthyroidism: NO 3. Menopause before 45: NO 4. Malnutrition: NO 5. Chronic liver disease: NO Rheumatoid Arthritis: NO Current Tobacco Use: NO RISK FACTORS HISTORY OF: Surgery to Spine/Hip(right/left)/Wrist (right/left): NO Family History of Osteoporosis: YES Active: YES Diet low in dairy products/other sources of calcium: NO Postmenopausal woman: AGE 46- 47 Take estrogen and/or progesterone medications: NO Lost more than 2 inches in height since high school: NO MEDICATIONS: Additional Medications: METOPROLOL, PAXIL, H2O PILL Additional History: EXAM MEASUREMENTS: Bone mineral densitometry was performed using the [employer] System. Bone mineral density as measured about the Lumbar spine is: ----- L1-L4(G/cm2): 1.126 T Score Values are as follows: ----- L2: -0.7 ----- L3: 0.4 ----- L4: -1.1 ----- L1-L4: -0.4 BASELINE Bone mineral density about the R hip (g/cm2): 0.801 Bone mineral density about the L hip (g/cm2): 0.827 T Score values are as follows: -----R Neck: -1.7 -----L Neck: -1.5 -----R Total: -0.9 -----L Total: -0.9 BASELINE IMPRESSION: Osteopenia (T Score between -2.5 and -1). There is slightly increased risk of fracture and the patient may be considered for treatment. Re-Screen 2-5 years. NOTE: T-SCORE=SD OF THE YOUNG ADULT MEAN.
--- NOTE | 2020-11-22 13:40 | MM ---
Reason for exam: screening (asymptomatic). Last mammogram was performed 1 year and 5 months ago. History: Patient is postmenopausal. Family history of breast cancer in paternal grandmother at age 30. Physical Findings: A clinical breast exam by your physician is recommended on an annual basis and results should be correlated with mammographic findings. MG 3D Screening Mammo W/Cad Bilateral CC and MLO view(s) were taken. Prior study comparison: June 21, 2019, bilateral MG 3d diag mammo w/cad [facility]. January 08, 2018, bilateral MG 3d screening mammo w/cad. There are scattered fibroglandular densities. Asymmetric breast tissue right upper outer quadrant, stable. There is no discrete abnormality. ASSESSMENT: Negative, BI-RAD 1 RECOMMENDATION: Routine screening mammogram of both breasts in 1 year.
== END | disposition home or self-care (01) ==
LOC: RADBDWWP 10:43
PROVIDERS: ATTEND Family Medicine
DX: Z13.820 Encounter for screening for osteoporosis (principal); M85.89 Other specified disorders of bone density and structure, multiple sites; Z12.31 Encounter for screening mammogram for malignant neoplasm of breast; Z78.0 Asymptomatic menopausal state; Z80.3 Family history of malignant neoplasm of breast
CPT/HCPCS: 77063; 77067; 77080

== ENCOUNTER → 2020-12-25 | Outpatient (CLI) | payer OTHER | LOC: LABWHC1 15:00 | PROVIDERS: ATTEND Family Medicine | DX: Z20.822 Contact with and (suspected) exposure to COVID-19 (principal) | CPT/HCPCS: U0003; U0005 ==

== ENCOUNTER → 2021-04-26 | Outpatient (CLI) | payer OTHER ==
--- NOTE | 2021-04-26 16:47 | XR ---
EXAMINATION TYPE: XR shoulder complete LT DATE OF EXAM: 04/26/2021 CLINICAL HISTORY: Pain. TECHNIQUE: Three views of the left shoulder are obtained. COMPARISON: None. FINDINGS: There is no acute fracture/dislocation evident in the left shoulder. Mild narrowing at the acromioclavicular and glenohumeral joints. Distal acromion morphology unremarkable. The visualized r ibs are intact. Overlying bra strap noted. IMPRESSION: As above.
== END | disposition home or self-care (01) ==
LOC: RADXRMAIN 15:18
PROVIDERS: ATTEND Nurse Practitioner
DX: M25.812 Other specified joint disorders, left shoulder (principal)

== ENCOUNTER 2021-06-29 22:55 | Emergency (ER) | payer OTHER ==
[2021-06-29 23:02] VITALS: TEMP 98.9
[2021-06-30] MEDS ORDERED: methylPREDNISolone SOD SUCCI 125 MG/2 ML VIAL IV STA (00:08)
[2021-06-30] MEDS ORDERED: FAMOTIDINE 20 MG/2 ML VIAL IV STA (00:08)
[2021-06-30] MEDS ORDERED: diphenhydrAMINE 50 MG/ML 1 ML VIAL IVP STA (00:08)
--- NOTE | 2021-06-30 01:34 | ED ---
General Adult HPI - General Chief complaint: Allergic Reaction Stated complaint: Allergic Reaction Time Seen by Provider: 06/29/21 23:53 Source: patient Mode of arrival: ambulatory Limitations: no limitations - History of Present Illness Initial comments: 55-year-old female patient presented to the emergency department today for possible ALLERGIC reaction. Patient states yesterday she developed a rash over her abdomen and legs. States she did see her physician who told her it was more than likely caused from bedbugs. States tonight she developed swelling to her upper lip and the rash seemed to spread. States she did just complete a prescription for azithromycin. Denies any other new exposures. She did recently have a COVID as well. States she is recovering from this. Denies any tongue or throat swelling. Denies abdominal pain. Denies any wheezing or shortness of breath. Has not taken any medication for her symptoms. - Related Data Home Medications Medication Instructions Recorded Confirmed Atorvastatin [Lipitor] 40 mg PO HS 12/25/17 11/27/18 Nitroglycerin Sl Tabs [Nitrostat] 0.4 mg SUBLINGUAL Q5M PRN 01/12/18 11/27/18 Metoprolol Succinate (ER) [Toprol 25 mg PO DAILY 01/15/18 11/27/18 Xl] Hydrochlorothiazide 12.5 mg PO DAILY 02/05/18 11/27/18 [hydroCHLOROthiazide] PARoxetine [Paxil] 20 mg PO DAILY 02/26/18 11/27/18 traZODone HCL 25 mg PO HS 11/27/18 11/27/18 Previous Rx's Medication Instructions Recorded Famotidine [Pepcid] 20 mg PO DAILY #3 tablet 06/30/21 predniSONE 50 mg PO DAILY #3 tab 06/30/21 Allergies Allergy/AdvReac Type Severity Reaction Status Date / Time azithromycin Allergy Rash/Hives Verified 06/30/21 16:04 Review of Systems ROS Statement: Those systems with pertinent positive or pertinent negative responses have been documented in the HPI. ROS Other: All systems not noted in ROS Statement are negative. Past Medical History Past Medical History: Hyperlipidemia, Hypertension Additional Past Medical History / Comment(s): States bp and glucose slightly elevated at last Drs. visit. Gets twitching/spasms in left calf. per pt "overactive gallbladder". covid 06/19/21 History of Any Multi-Drug Resistant Organisms: None Reported Past Surgical History: Appendectomy, Heart Catheterization Past Anesthesia/Blood Transfusion Reactions: No Reported Reaction Past Psychological History: Anxiety Smoking Status: Never smoker Past Alcohol Use History: Rare Past Drug Use History: None Reported - Past Family History Father Additional Family Medical History / Comment(s): CROHNS General Exam Limitations: no limitations General appearance: alert, in no apparent distress, other (This is a well- developed, well-nourished adult female in no acute distress.) ENT exam: Present: mucous membranes moist, other (Full upper lip swelling, angioedema.). Absent: normal exam Respiratory exam: Present: normal lung sounds bilaterally. Absent: respiratory distress, wheezes, rales, rhonchi, stridor Cardiovascular Exam: Present: regular rate, normal rhythm, normal heart sounds. Absent: systolic murmur, diastolic murmur, rubs, gallop, clicks GI/Abdominal exam: Present: soft, normal bowel sounds. Absent: distended, tenderness, guarding, rebound, rigid Neurological exam: Present: alert, oriented X3, CN II-XII intact Psychiatric exam: Present: normal affect, normal mood Skin exam: Present: warm, dry, intact, normal color, rash (Urticarial rash noted over the abdomen and thighs. Lesions are non-petechial, nonvesicular.) Course Vital Signs 06/29/21 06/29/21 06/30/21 22:58 23:48 01:41 Temperature 98.9 F Pulse Rate 66 67 76 Respiratory 20 18 22 Rate Blood Pressure 139/82 122/80 122/68 O2 Sat by Pulse 96 98 Oximetry Medical Decision Making - Medical Decision Making 55-year-old female patient presents for evaluation of rash and upper lip swelling. Physical examination did reveal urticarial rash over abdomen and upper thighs. She also had angioedema to the upper lip. She is in no respiratory distress, able to speak full sentences. Lungs are clear to auscultation with good air movement. She was given Pepcid, Benadryl, Solu- Medrol. Upon reevaluation she is resting comfortably states symptoms are improved. She'll be discharged home with a course of prednisone and Pepcid. Instructed take Benadryl every 6 hours as needed. She is instructed to avoid azithromycin in the future. She is instructed to follow-up with primary care physician for recheck in 1-2 days. Return parameters were discussed in detail. She verbalizes understanding and is discharged in stable condition. My attending is Dr. Culp. Disposition Clinical Impression: Allergic reaction Disposition: HOME SELF-CARE Condition: Good Instructions (If sedation given, give patient instructions): General Allergic Reaction (ED) Additional Instructions: Take medication as directed. Follow-up through primary care physician for recheck in 1-2 days. Return to the emergency department for any new, worsening, or concerning symptoms. Prescriptions: Famotidine [Pepcid] 20 mg PO DAILY #3 tablet predniSONE 50 mg PO DAILY #3 tab Is patient prescribed a controlled substance at d/c from ED?: No Referrals: Vince Johnson MD [Primary Care Provider] - 1-2 days Time of Disposition: 01:34
[2021-06-30 01:42] VITALS: BP 122/68; PULSE 76; RESP 22
== END 2021-06-30 01:42 | disposition home or self-care (01) ==
LOC: EC 22:55
DX: T78.40XA Allergy, unspecified, initial encounter (principal); E78.5 Hyperlipidemia, unspecified; I10 Essential (primary) hypertension; Z86.16 Personal history of COVID-19; Z88.1 Allergy status to other antibiotic agents; Z79.899 Other long term (current) drug therapy
CPT/HCPCS: 99283; 96374; 96375; J1200; J2930

== ENCOUNTER → 2021-10-22 | Outpatient (CLI) | payer OTHER ==
--- NOTE | 2021-10-22 10:28 | US ---
EXAMINATION TYPE: US abdomen complete DATE OF EXAM: 10/22/2021 COMPARISON: CT September 24, 2012 CLINICAL HISTORY: R10.31 RLQ ABD PAIN,R10.11 RUQ ABD PAIN. RUQ/RLQ pain, burning EXAM MEASUREMENTS: Liver Length: 13.0 cm Gallbladder Wall: 0.2 cm CBD: 0.3 cm Spleen: 9.2 cm Right Kidney: 9.7 x 4.4 x 4.3 cm Left Kidney: 9.9 x 4.1 x 4.9 cm Pancreas: wnl Liver: wnl Gallbladder: wnl Evidence for sonographic Gregory's sign: no CBD: wnl Spleen: wnl Right Kidney: wnl Left Kidney: wnl Upper IVC: wnl Abd Aorta: wnl scanned soft tissue at area of concern, no obvious abnormality seen The liver is homogenous. The intrahepatic portion of the IVC and proximal abdominal aorta are within normal limits. There is no evidence of cholelithiasis. Common bile duct is unremarkable. The visu alized portions of the pancreas are homogenous. The spleen is unremarkable. Kidneys are symmetric a nd free of hydronephrosis. No renal lesions are seen. IMPRESSION: No acute findings are evident. Targeted ultrasound scanning towards fundus study shows no worrisome mass or fluid collection. No obvious ventral wall hernia defect identified.
== END | disposition home or self-care (01) ==
LOC: RADUSWWP 09:45
PROVIDERS: ATTEND Internal Medicine
DX: R10.31 Right lower quadrant pain (principal); R10.11 Right upper quadrant pain
CPT/HCPCS: 76700

== ENCOUNTER → 2022-11-21 | Outpatient (CLI) | payer OTHER ==
--- NOTE | 2022-11-22 07:15 | MM ---
Reason for Exam: Screening (asymptomatic). Last mammogram was performed 2 year(s) and 0 month(s) ago. Patient History: Menarche at age 14. First Full-Term at age 22. Postmenopausal. Paternal grandmother had breast cancer, age 30. Risk Values: Keri 5 year model risk: 1.1%. NCI Lifetime model risk: 7.2%. Prior Study Comparison: 01/08/2018 Bilateral Screening Mammogram, [facility]. 06/21/2019 Bilateral Diagnostic Mammogram, [facility]. 11/21/2020 Bilateral Screening Mammogram, [facility]. Tissue Density: There are scattered fibroglandular densities. Findings: Analyzed By CAD. There is no suspicious group of microcalcifications or new suspicious mass in either breast. Overall Assessment: Negative, BI-RAD 1 Management: Screening Mammogram of both breasts in [address] [facility] will attempt to contact patient to return for supplemental views and ultrasound if indicated. Patient should continue monthly self-breast exams. A clinical breast exam by your physician is recommended on an annual basis. This exam should not preclude additional follow-up of suspicious palpable abnormalities. Note on Keri scores and lifetime risk: 1. A Keri score greater than 3% is considered moderate risk. If this is the case, consider specialist referral to assess eligibility for a risk reducing agent. 2. If overall lifetime risk for the development of breast cancer is 20% or higher, the patient may qualify for future screening with alternating mammogram and breast MRI. Electronically signed and approved by: Celio Koenig DO
== END | disposition home or self-care (01) ==
LOC: RADMAMWWP 16:39
PROVIDERS: ATTEND Obstetrics & Gynecology
DX: Z12.31 Encounter for screening mammogram for malignant neoplasm of breast (principal); Z78.0 Asymptomatic menopausal state; Z80.3 Family history of malignant neoplasm of breast
CPT/HCPCS: 77063; 77067

== ENCOUNTER → 2023-07-30 | Outpatient (CLI) | payer BC ==
--- NOTE | 2023-07-30 21:08 | BD ---
EXAMINATION TYPE: Axial Bone Density DATE OF EXAM: 07/30/2023 CLINICAL HISTORY: 57 years old Female. ICD-10 CODE: Z78.0 ASYMPTOMATIC MENOPAUSAL STATE Height: 59.5 Weight: 141.4 FRAX RISK QUESTIONS: Alcohol (3 or more units per day): no Family History (Parent hip fracture): no Glucocorticoids (More than 3mos): no History of Fracture in Adulthood: no Secondary Osteoporosis: 1. Type 1 Diabetes: 2. Hyperthyroidism: no 3. Menopause before 45: no 4. Malnutrition: no 5. Chronic liver disease: no Rheumatoid Arthritis: no Current Tobacco Use: no RISK FACTORS HISTORY OF: Hip Fracture (Right/Left): no Spine Fracture: no History of Wrist Fracture: no Surgery to Spine/Hip(right/left)/Wrist (right/left): no MEDICATIONS: Thyroid Medications: no Osteoporosis Medications:no EXAM MEASUREMENTS: Bone mineral densitometry was performed using the [employer] System. Bone mineral density as measured about the Lumbar spine is: ----- L1-L4(G/cm2): 1.094 T Score Values are as follows: ----- L1: -1.2 ----- L2: -0.4 ----- L3: 0.3 ----- L4: -1.6 ----- L1-L4: 0.7 Z Score Values are as follows: ----- L1: -0.3 ----- L2: 0.5 ----- L3: 1.3 ----- L4: -0.6 ----- L1-L4: 0.3 Bone mineral density has: decreased -2.8 % since study of: 11/21/2020 Bone mineral density about the R hip (g/cm2): 0.895 Bone mineral density about the L hip (g/cm2): 0.893 T Score values are as follows: -----R Neck: -1.7 -----L Neck: -1.8 -----R Total: -0.9 -----L Total: -0.9 Z Score values are as follows: -----R Neck: -0.6 -----L Neck: -0.7 -----R Total: -0.1 -----L Total: -0.01 Bone mineral density has: increased 0.6 % since study of: 11/21/2020 FRAX%s: The graph provided illustrates a 7.8% chance for a major osteoporotic fx and a 0.8% chance fo r the hips probability for fx in 10 years time. IMPRESSION: Osteopenia (T Score between -2.5 and -1). There is slightly increased risk of fracture and the patient may be considered for treatment. Re-Screen 2-5 years. NOTE: T-SCORE=SD OF THE YOUNG ADULT MEAN.
== END | disposition home or self-care (01) ==
LOC: RADBDWWP 08:17
PROVIDERS: ATTEND Family Medicine
DX: M85.89 Other specified disorders of bone density and structure, multiple sites (principal); Z78.0 Asymptomatic menopausal state
CPT/HCPCS: 77080

== ENCOUNTER 2023-08-09 15:45 | Emergency (ER) | payer BC ==
[2023-08-09 16:20] VITALS: RESP 18; TEMP 98.3
--- NOTE | 2023-08-09 16:33 | ED ---
General Adult HPI - General Chief complaint: Fall Stated complaint: Fall Time Seen by Provider: 08/09/23 16:05 Source: patient, RN notes reviewed, old records reviewed Mode of arrival: ambulatory Limitations: no limitations - History of Present Illness Initial comments: Patient is a 58-year-old female presents emergency department for left ankle pain. Fell this morning going down a few stairs, and twisted her left ankle. States she was on it all day and felt a "pop" while she was at work and is concerned something happened. Presents for further evaluation at this time. Pain is primarily over the lateral aspect of the left ankle as well as the proximal dorsal foot. Denies hitting her head or loss of consciousness. Denies any other acute injuries. Presents for further evaluation at this time. Injury occurred multiple hours ago sometime earlier this morning. Worked all day on that, and she is a hairdresser standing all day. - Related Data Home Medications Medication Instructions Recorded Confirmed Atorvastatin [Lipitor] 40 mg PO HS 12/25/17 11/27/18 Nitroglycerin Sl Tabs [Nitrostat] 0.4 mg SUBLINGUAL Q5M PRN 01/12/18 11/27/18 Metoprolol Succinate (ER) [Toprol 25 mg PO DAILY 01/15/18 11/27/18 Xl] hydroCHLOROthiazide 12.5 mg PO DAILY 02/05/18 11/27/18 PARoxetine [Paxil] 20 mg PO DAILY 02/26/18 11/27/18 traZODone HCL 25 mg PO HS 11/27/18 11/27/18 Previous Rx's Medication Instructions Recorded Famotidine [Pepcid] 20 mg PO DAILY #3 tablet 06/30/21 predniSONE 50 mg PO DAILY #3 tab 06/30/21 Allergies Allergy/AdvReac Type Severity Reaction Status Date / Time azithromycin Allergy Rash/Hives Verified 08/09/23 16:03 Review of Systems ROS Statement: Those systems with pertinent positive or pertinent negative responses have been documented in the HPI. Review of Systems: CONST: Denies fever EYES: Denies blurry vision ENT: Denies nasal congestion C/V: Denies Chest pain RESP: Denies shortness of breath GI: Denies abdominal pain : Denies dysuria SKIN: Denies rash. MSK: Endorses left ankle pain NEURO: Denies headache ROS Other: All systems not noted in ROS Statement are negative. Past Medical History Past Medical History: Hyperlipidemia, Hypertension Additional Past Medical History / Comment(s): States bp and glucose slightly elevated at last Drs. visit. Gets twitching/spasms in left calf. per pt "overactive gallbladder". covid 06/19/21 History of Any Multi-Drug Resistant Organisms: None Reported Past Surgical History: Appendectomy, Heart Catheterization Past Anesthesia/Blood Transfusion Reactions: No Reported Reaction Past Psychological History: Anxiety Smoking Status: Never smoker Past Alcohol Use History: Rare Past Drug Use History: None Reported - Past Family History Father Additional Family Medical History / Comment(s): CROHNS General Exam - General Exam Comments Initial Comments: General: Appears in mild distress secondary to pain HEAD: Normal with no signs of head trauma. EYES: EOMI. ENT: Hearing grossly intact. RESPIRATORY: No respiratory distress. C/V: Regular rate and rhythm. ABD: Abdomen is nondistended. EXT: No obvious deformity. Reduced range of motion of the left ankle secondary to pain. Tenderness to palpation over the lateral malleolus as well as the dorsal proximal left foot. Neurovascular intact. 2+ DP and TP pulses on the left. No skin changes. SKIN: No rashes or lesions observed on exposed skin. NEURO: Alert and oriented. Limitations: no limitations Course Vital Signs 08/09/23 16:00 Temperature 98.3 F Pulse Rate 64 Respiratory 18 Rate Blood Pressure 133/78 O2 Sat by Pulse 98 Oximetry Medical Decision Making - Medical Decision Making Was pt. sent in by a medical professional or institution (, [facility], EPIC ANALYST, urgent care, hospital, or snf...) When possible be specific @ -No Did you speak to anyone other than the patient for history (EMS, parent, family, police, friend...)? What history was obtained from this source @ -No Did you review nursing and triage notes (agree or disagree)? Why? @ -I reviewed and agree with nursing and triage notes Were old charts reviewed (outside hosp., previous admission, EMS record, old EKG, old radiological studies, urgent care reports/EKG's, snf records)? Report findings @ -No old charts were reviewed Differential Diagnosis (chest pain, altered mental status, abdominal pain women, abdominal pain men, vaginal bleeding, weakness, fever, dyspnea, syncope, headache, dizziness, GI bleed, back pain, seizure, CVA, palpatations, mental health, musculoskeletal)? @ -Differential Musculoskeletal Muscular strain, contusion, ligament sprain, fracture, arthritis, septic arthritis, bursitis, cellulitis, muscle spasm, nerve compression, DVT, arterial occlusion, herpes zoster, electrolyte abnormality, tumor.... This is not meant to be in all inclusive list EKG interpreted by me (3pts min.). @ -None done X-rays interpreted by me (1pt min.). @ -X-ray returned remarkable for soft tissue injury with no obvious acute fracture. CT interpreted by me (1pt min.). @ -None done U/S interpreted by me (1pt. min.). @ -None done What testing was considered but not performed or refused? (CT, X-rays, U/S, labs)? Why? @ -None What meds were considered but not given or refused? Why? @ -None Did you discuss the management of the patient with other professionals (professionals i.e. , PA, EPIC ANALYST, lab, RT, psych nurse, social services director, hogshead stripper, teacher, cavalry officer, pillowcase cutter)? Give summary @ -No Was smoking cessation discussed for >3mins.? @ -No Was critical care preformed (if so, how long)? @ -No Were there social determinants of health that impacted care today? How? (Homelessness, low income, unemployed, alcoholism, drug addiction, transportation, low edu. Level, literacy, decrease access to med. care, detention, rehab)? @ -No Was there de-escalation of care discussed even if they declined (Discuss DNR or withdrawal of care, Hospice)? DNR status @ -No What co-morbidities impacted this encounter? (DM, HTN, Smoking, COPD, CAD, Cancer, CVA, ARF, Chemo, Hep., AIDS, mental health diagnosis, sleep apnea, morb id obesity)? @ -None Was patient admitted / discharged? Hospital course, mention meds given and route, prescriptions, significant lab abnormalities, going to OR and other pertinent info. @ -Patient presents with left ankle injury. Presents multiple hours after the injury. We will obtain x-rays of the left ankle and foot. Patient was in agreement this plan. Neurovascular intact. Vital signs within acceptable limits. Patient will be given ibuprofen for analgesia as well as an ice pack. Vital signs are within acceptable limits. X-ray showed findings consistent with a left ankle sprain. She will be given a air splint. I did offer crutches which she declined at this time. We discussed using [id number] analgesia medications, ice, elevation and rest at home. She was in agreement this plan. Strict return precautions discussed. I instructed the patient to follow up with their PCP in the next 1-3 days. I provided contact information for follow up with Ortho. I explained that the patient should return to the emergency department if they experience any worsening symptoms. Strict return precautions were discussed with the patient. The patient expressed understanding of these instructions. I answered all questions that the patient had. The patient was discharged home in good condition with their prescriptions and follow up information. Undiagnosed new problem with uncertain prognosis? @ -No Drug Therapy requiring intensive monitoring for toxicity (Heparin, Nitro, Insulin, Cardizem)? @ -No Were any procedures done? @ -No Diagnosis/symptom? @ -Left ankle sprain Acute, or Chronic, or Acute on Chronic? @ -Acute Uncomplicated (without systemic symptoms) or Complicated (systemic symptoms)? @ -Uncomplicated Side effects of treatment? @ -None Exacerbation, Progression, or Severe Exacerbation] @ -No Poses a threat to life or bodily function? @ -No Disposition Clinical Impression: Left ankle sprain Disposition: HOME SELF-CARE Condition: Good Instructions (If sedation given, give patient instructions): Ankle Sprain (ED), Fall Prevention (ED) Additional Instructions: follow up with orthopedics if no improvement in symptoms after 1 week. may need repeat xray. Is patient prescribed a controlled substance at d/c from ED?: No Referrals: Cornel Witt MD [Primary Care Provider] - 1-2 days Flex Finley MD [STAFF PHYSICIAN] - 1-2 days Time of Disposition: 16:59
--- NOTE | 2023-08-09 16:41 | XR ---
EXAMINATION TYPE: XR ankle complete LT, XR foot complete LT DATE OF EXAM: 08/09/2023 4:24 PM CLINICAL INDICATION:Female, 58 years old with history of fall, pain; COMPARISON: None TECHNIQUE: XR ankle complete LT, XR foot complete LT; ankle and foot are imaged in frontal, lateral and oblique projections. FINDINGS: There is no evidence of acute osseous pathology. The joint spaces are well-preserved without evidenc e of subluxation or dislocation. Kager's fat pad is intact. Mild soft tissue swelling around the ankl e. No radiopaque foreign bodies are identified. IMPRESSION: 1. No evidence of acute fracture. 2. Subcutaneous swelling around the ankle likely secondary to underlying soft tissue injury.
[2023-08-09] MEDS: IBUPROFEN 800 MG TAB PO STA (16:52)
[2023-08-09 17:46] VITALS: BP 132/78; PULSE 80
== END 2023-08-09 17:34 | disposition home or self-care (01) ==
LOC: EC 15:45
DX: S93.402A Sprain of unspecified ligament of left ankle, initial encounter (principal); I10 Essential (primary) hypertension; E78.5 Hyperlipidemia, unspecified; Z88.1 Allergy status to other antibiotic agents; Z79.899 Other long term (current) drug therapy; Z86.16 Personal history of COVID-19; Z90.49 Acquired absence of other specified parts of digestive tract; W10.9XXA Fall (on) (from) unspecified stairs and steps, initial encounter; X50.1XXA Overexertion from prolonged static or awkward postures, initial encounter
CPT/HCPCS: 99283

== ENCOUNTER → 2024-07-12 | Outpatient (CLI) | payer BC ==
--- NOTE | 2024-07-12 07:29 | MM ---
Reason for Exam: Screening (asymptomatic). Last mammogram was performed 1 year(s) and 7 month(s) ago. Patient History: Menarche at age 14. First Full-Term at age 22. Postmenopausal. Paternal grandmother had breast cancer, age 30. Risk Values: Keri 5 year model risk: 1.1%. NCI Lifetime model risk: 7.1%. Prior Study Comparison: 06/21/2019 Bilateral Diagnostic Mammogram, [facility]. 11/21/2020 Bilateral Screening Mammogram, [facility]. 11/21/2022 Bilateral MG 3D screening mammo w/cad, [facility]. Tissue Density: There are scattered areas of fibroglandular density. Findings: Analyzed By CAD. Right breast: There is no suspicious group of microcalcifications or new suspicious mass. Left breast: There is no suspicious group of microcalcifications or new suspicious mass. Overall Assessment: Negative, BI-RAD 1 Management: Screening Mammogram of both breasts in [address] [facility] will attempt to contact patient to return for supplemental views and ultrasound if indicated. Patient should continue monthly self-breast exams. A clinical breast exam by your physician is recommended on an annual basis. This exam should not preclude additional follow-up of suspicious palpable abnormalities. Note on Keri scores and lifetime risk: 1. A Keri score greater than 3% is considered moderate risk. If this is the case, consider specialist referral to assess eligibility for a risk reducing agent. 2. If overall lifetime risk for the development of breast cancer is 20% or higher, the patient may qualify for future screening with alternating mammogram and breast MRI. [facility], , 07/12/2024 7:26 AM. Electronically signed and approved by: Celio Koenig DO
== END | disposition home or self-care (01) ==
LOC: RADMAMWWP 06:59
PROVIDERS: ATTEND Family Medicine
DX: Z12.31 Encounter for screening mammogram for malignant neoplasm of breast (principal); Z78.0 Asymptomatic menopausal state; Z80.3 Family history of malignant neoplasm of breast; R92.323 Mammographic fibroglandular density, bilateral breasts
CPT/HCPCS: 77063; 77067

== ENCOUNTER → 2024-12-23 | Outpatient (CLI) | payer BC ==
--- NOTE | 2024-12-24 08:21 | CT ---
EXAMINATION TYPE: CT urogram wo/w con CT DLP: 1331.3 mGycm, Automated exposure control for dose reduction was used. DATE OF EXAM: 12/23/2024 4:29 PM COMPARISON: Abdominal ultrasound 10/22/2021 CLINICAL INDICATION:Female, 59 years old with history of R31.0 GROSS HEMATURIA; PHH, gross hematuria, puss, UTI TECHNIQUE: Urogram of the abdomen and pelvis was performed before and after the administration of 100 cc of IV c ontrast Isovue 300 contrast. Delayed imaging was performed. Coronal and sagittal reformats were perfo rmed. One or more CT dose reduction strategies were utilized during this examination. 2D and 3D recon structions are performed to assist visualization of the urinary tract on a separate workstation. FINDINGS: GENITOURINARY: RIGHT KIDNEY AND URETER: No calculi. No hydronephrosis or hydroureter. No renal mass or other lesions . No urothelial lesions: no filling defect, dilation, stricture or wall thickening. LEFT KIDNEY AND URETER: No calculi. No hydronephrosis or hydroureter. No renal mass or other lesions. No urothelial lesions: no filling defect, dilation, stricture or wall thickening. URINARY BLADDER: Moderately well distended. Normal, no calculi, mass or other lesions. REPRODUCTIVE: Unremarkable. ABDOMEN LIVER: Unremarkable. GALLBLADDER AND BILE DUCTS: Unremarkable PANCREAS: Unremarkable. SPLEEN: Unremarkable. ADRENAL GLANDS: Unremarkable. STOMACH AND BOWEL: Unremarkable. No evidence of bowel obstruction. PERITONEUM: No evidence of pneumoperitoneum, free fluid, or adenopathy. VASCULATURE: Atherosclerotic calcifications are present throughout the abdominal aorta and its branch es. No abdominal aortic aneurysm. Few pelvic phleboliths. MUSCULOSKELETAL: No acute osseous abnormalities. SOFT TISSUE/ABDOMINAL WALL: Tiny fat filled umbilical hernia. LOWER CHEST: Minimal bilateral lower lobe dependent subsegmental atelectasis. Linear scarring within the lingula.. IMPRESSION: No evidence of urolithiasis or renal/urothelial neoplasm. [facility], , 12/24/2024 8:19 AM
== END | disposition home or self-care (01) ==
LOC: RADCTMAIN 15:21
PROVIDERS: ATTEND Urology
DX: R31.0 Gross hematuria (principal); N39.0 Urinary tract infection, site not specified; Z87.440 Personal history of urinary (tract) infections
CPT/HCPCS: 74178; 74400; Q9967